=== PATIENT | male | born 1975 | race Caucasian/White ===

== ENCOUNTER 2017-11-23 20:24 | Inpatient (IN) | payer OTHER, MEDICARE ==
[~2017-11-23 20:24] MED LIST: MAGNESIUM HYDROXIDE SUSP 30 ML CUP PO PRN
[2017-11-23 20:25] VITALS: O2SAT 97
[2017-11-23] MEDS ORDERED: DIPHTH/TETANUS/ACEL PERTUSSIS (BOOSTER) 0.5 ML VIAL/PFS IM ONE (20:30)
[2017-11-23] MEDS ORDERED: IOHEXOL 350 MG/ML 10 ML VIAL (for RAD DIAG) IVCONTRAST ONE (20:46)
[2017-11-23 20:52] LABS: AUTOMATED NEUTROPHIL # 9.7 TH/MM3 (1.0-8.5); BASOPHIL % 0.3 % (0.0-2.0); EOSINOPHIL # 0.1 TH/MM3 (0-1.3); EOSINOPHIL % 0.4 % (0.0-15.0); HEMATOCRIT 38.3 % (34.0-42.0); HEMOGLOBIN 13.1 GM/DL (11.0-16.0); LYMPH % 19.6 % (23.0-77.0); LYMPHOCYTE # 2.5 TH/MM3 (4.0-13.5); MEAN CELL VOLUME 88.1 FL (85.0-126.0); MEAN CORPUSCULAR HEMOGLOBIN 30.1 PG (27.0-35.0); MEAN CORPUSCULAR HGB CONC 34.2 % (32.0-36.0); MEAN PLATELET VOLUME 8.2 FL (7.0-11.0); MONO % 4.3 % (0.0-14.0); MONOCYTE # 0.6 TH/MM3 (0-2.4); NEUT % 75.4 % (6.0-49.0); PLATELET COUNT 257 TH/MM3 (150-450); RED BLOOD COUNT 4.34 MIL/MM3 (3.50-4.30); RED CELL DISTRIBUTION WIDTH 12.8 % (11.6-17.2); WHITE BLOOD COUNT 12.9 TH/MM3 (6-17.5)
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
[2017-11-23 21:00] LABS: INTERNATIONAL NORMALIZED RATIO 1.1 RATIO
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
[2017-11-23] MEDS ORDERED: ONDANSETRON HCL 4 MG/2 ML VIAL IV PUSH PRN (21:15)
[2017-11-23] MEDS ORDERED: HYDROmorphone HCL PF 1 MG/ML VIAL IVP PRN ×2 (21:15)
[2017-11-23] MEDS ORDERED: LIDOCAINE HCL 1% 30 ML VIAL INFIL ONE (21:15)
[2017-11-23] MEDS: LACTATED RINGER'S 1000 ML INJ 1,000 ML IV SCH (21:15)
[2017-11-23] MEDS ORDERED: SODIUM CHLORIDE 0.9% FLUSH 10 ML FLUSH IV FLUSH PRN (21:15)
[2017-11-23] MEDS ORDERED: CHLORHEXIDINE GLUCONATE 2 % 1 PACK (2 CLOTHS) TOP PRN (21:15)
[2017-11-23] MEDS ORDERED: MISCELLANEOUS NURSING INFORMATION XX SCH (21:15)
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
[2017-11-23] MEDS ORDERED: HYDROmorphone HCL PF 2 MG/ML VIAL IV PRN (21:30)
[2017-11-23] MEDS: HYDROmorphone HCL PF 2 MG/ML VIAL IV PUSH PRN (21:58)
[2017-11-23] MEDS ORDERED: LORazepam 2 MG/ML VIAL IV PUSH ONE (22:00)
[2017-11-23] MEDS: BACITRACIN TOP OINT 15 GM TUBE TOP SCH (22:00)
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
--- NOTE | 2017-11-23 22:16 | PD ---
Physical Exam Date Seen by Provider: Nov 23, 2017 Time Seen by Provider: 22:15 Narrative For full history and physical examination please see previous provider's note. I was asked to repair laceration the patient's right foot. Data Data Last Documented VS Vital Signs Date Time Temp Pulse Resp B/P (MAP) Pulse Ox O2 Delivery O2 Flow Rate FiO2 11/23/17 20:25 97 2.00 Orders Orders Iuab-Ysl-Dqiora (Booster) Inj (Boostrix (11/23/17 20:30) Fentanyl Inj (Fentanyl Inj) (11/23/17 20:40) I-Stat Profile (11/23/17 20:34) Complete Blood Count With Diff (11/23/17 20:34) Prothrombin Time / Inr (Pt) (11/23/17 20:34) Act Partial Throm Time (Ptt) (11/23/17 20:34) Type And Screen (11/23/17 20:34) Chest, Single Ap (11/23/17 20:34) Pelvis, Ap Only (Routine) (11/23/17 20:34) Ct Brain W/O Iv Contrast(Rout) (11/23/17 20:34) Ct Cerv Spine W/O Contrast (11/23/17 20:34) Ct Abd/Pel W Iv Contrast(Rout) (11/23/17 20:34) Ct Thorax/ Chest W Iv Contrast (11/23/17 20:34) Iv Access Insert/Monitor (11/23/17 20:34) Ecg Monitoring (11/23/17 20:34) Oximetry (11/23/17 20:34) Oxygen Administration (11/23/17 20:34) Wrist, Limited (Ap&Lat) (11/23/17 ) Foot, Limited (2vws) (11/23/17 ) Elbow, One View (11/23/17 ) Iohexol 350 Inj (Omnipaque 350 Inj) (11/23/17 20:46) Lidocaine 1% Inj (Xylocaine 1% Inj) (11/23/17 21:15) Admit Order (Ed Use Only) (11/23/17 21:06) Labs Laboratory Tests Test 11/23/17 20:30 White Blood Count 12.9 TH/MM3 Red Blood Count 4.34 MIL/MM3 Hemoglobin 13.1 GM/DL Bedside Hemoglobin 12.2 G/DL Hematocrit 38.3 % Bedside Hematocrit 36.0 % Mean Corpuscular Volume 88.1 FL Mean Corpuscular Hemoglobin 30.1 PG Mean Corpuscular Hemoglobin Concent 34.2 % Red Cell Distribution Width 12.8 % Platelet Count 257 TH/MM3 Mean Platelet Volume 8.2 FL Neutrophils (%) (Auto) 75.4 % Lymphocytes (%) (Auto) 19.6 % Monocytes (%) (Auto) 4.3 % Eosinophils (%) (Auto) 0.4 % Basophils (%) (Auto) 0.3 % Neutrophils # (Auto) 9.7 TH/MM3 Lymphocytes # (Auto) 2.5 TH/MM3 Monocytes # (Auto) 0.6 TH/MM3 Eosinophils # (Auto) 0.1 TH/MM3 Basophils # (Auto) 0.0 TH/MM3 CBC Comment DIFF FINAL Differential Comment Prothrombin Time 11.0 SEC Prothromb Time International Ratio 1.1 RATIO Activated Partial Thromboplast Time 21.6 SEC Bedside Sodium 145 MMOL/L Bedside Potassium 4.4 MMOL/L Bedside Chloride 109 MMOL/L Bedside Blood Urea Nitrogen 13 MG/DL Bedside Creatinine 1.3 MG/DL Bedside Glucose 154 MG/DL [facility] Medical Record Reviewed: Yes Supervised Visit with WENDIE: Yes Procedures Procedure Narrative LACERATION LOCATION: Dorsal aspect of right LENGTH: 6 cm NUMBER OF STITCHES/BRETT: 12 stitches REPAIR: The area of the laceration was prepped with Betadine and sterilely draped. The laceration was infiltrated with 1% Xylocaine. The wound was copiously irrigated and explored without evidence of foreign body, tendon injury or neurovascular injury. The wound was closed using 3-0 Ethilon. This was a 1 layer repair. A sterile dressing was applied. The patient was advised to keep the dressing clean and dry. Patient tolerated the procedure well. Diagnosis Primary Impression: Spleen laceration Qualified Codes: S36.039A - Unspecified laceration of spleen, initial encounter Additional Impressions: Left rib fracture Qualified Codes: S22.42XA - Multiple fractures of ribs, left side, initial encounter for closed fracture Closed head injury Qualified Codes: S09.90XA - Unspecified injury of head, initial encounter Fracture of right ulna Qualified Codes: S52.001A - Unspecified fracture of upper end of right ulna, initial encounter for closed fracture Laceration of right foot Qualified Codes: S91.311A - Laceration without foreign body, right foot, initial encounter Marilyn Sommer Nov 23, 2017 22:16
[2017-11-23 22:35] VITALS: BP 70/39; PULSE 85; O2SAT 97
[2017-11-23 22:43] VITALS: BP 104/55; PULSE 87; O2SAT 97
[2017-11-23 22:44] VITALS: BP 104/55; PULSE 88; RESP 16; O2SAT 96
[2017-11-23] MEDS ORDERED: SODIUM CHLOR 0.9% 250 ML INJ 250 ML IV ONE (22:45)
[2017-11-23] MEDS ORDERED: TERBUTALINE INJ 1 MG/ML AMP SQ PRN (22:45)
[2017-11-23] MEDS ORDERED: PHENYLEPHRINE INJ 40 MG in DEXTROSE 5% IN WATE 500 ML INJ 496 ML IV PRN ×4 (22:45→23:00)
[2017-11-23 22:55] LABS: AUTOMATED NEUTROPHIL # 13.9 TH/MM3 (1.0-8.5); BASOPHIL # 0.1 TH/MM3 (0-0.4); BASOPHIL % 0.3 % (0.0-2.0); EOSINOPHIL % 0.1 % (0.0-15.0); HEMATOCRIT 36.5 % (34.0-42.0); HEMOGLOBIN 12.6 GM/DL (11.0-16.0); LYMPH % 8.5 % (23.0-77.0); LYMPHOCYTE # 1.4 TH/MM3 (4.0-13.5); MEAN CELL VOLUME 87.9 FL (85.0-126.0); MEAN CORPUSCULAR HEMOGLOBIN 30.4 PG (27.0-35.0); MEAN CORPUSCULAR HGB CONC 34.6 % (32.0-36.0); MEAN PLATELET VOLUME 8.2 FL (7.0-11.0); MONO % 7.2 % (0.0-14.0); MONOCYTE # 1.2 TH/MM3 (0-2.4); NEUT % 83.9 % (6.0-49.0); PLATELET COUNT 223 TH/MM3 (150-450); RED BLOOD COUNT 4.15 MIL/MM3 (3.50-4.30); RED CELL DISTRIBUTION WIDTH 12.6 % (11.6-17.2); WHITE BLOOD COUNT 16.5 TH/MM3 (6-17.5)
[2017-11-23 23:49] LABS: BANDS 4 % (0-6); LYMPHOCYTES 12 % (23-77); METAMYELOCYTES 2 % (0-1); MONOCYTES 4 % (0-14); NEUTROPHIL # MANUAL DIFF 13.7 TH/MM3 (1.0-8.5); POLYS (SEG NEUTROPHILS) 77 % (6-49)
[2017-11-24] VITALS (8 sets, daily range): BP systolic 120–148; BP diastolic 51–72; PULSE 69–101; RESP 8–16; TEMP 98.3–98.8; O2SAT 95–98
[2017-11-24] MEDS: HYDROmorphone HCL PF 2 MG/ML VIAL IV PUSH PRN ×3 (00:29→06:21)
[2017-11-24] MEDS: MULTIVITAMIN INJ 10 ML, THIAMINE INJ 100 MG, FOLIC ACID INJ 1 MG in SODIUM CHLORID 0.9%... IV SCH ×2 (02:08→23:38)
[2017-11-24 02:10] LABS: BILIRUBIN, URINE NEG (NEG); BLOOD, URINE LARGE (NEG); GLUCOSE,URINE NEG (NEG); KETONE, URINE NEG (NEG); NITRITE,URINE NEG (NEG); PH, URINE 6.5 (5.0-8.5); URINE COLOR LIGHT-YELLOW (YELLW/STRAW); URINE LEUKOCYTE ESTERASE NEG (NEG)
[2017-11-24] MEDS ORDERED: CHLORHEXIDINE GLUCONATE 2 % 1 PACK (2 CLOTHS) TOP SCH (04:00)
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
[2017-11-24 06:23] LABS: AUTOMATED NEUTROPHIL # 7.7 TH/MM3 (1.0-8.5); BASOPHIL % 0.1 % (0.0-2.0); EOSINOPHIL % 0.1 % (0.0-15.0); HEMATOCRIT 37.4 % (34.0-42.0); HEMOGLOBIN 12.9 GM/DL (11.0-16.0); LYMPH % 23.4 % (23.0-77.0); LYMPHOCYTE # 2.7 TH/MM3 (4.0-13.5); MEAN CELL VOLUME 88.5 FL (85.0-126.0); MEAN CORPUSCULAR HEMOGLOBIN 30.5 PG (27.0-35.0); MEAN CORPUSCULAR HGB CONC 34.5 % (32.0-36.0); MEAN PLATELET VOLUME 8.2 FL (7.0-11.0); MONO % 9.7 % (0.0-14.0); MONOCYTE # 1.1 TH/MM3 (0-2.4); NEUT % 66.7 % (6.0-49.0); PLATELET COUNT 177 TH/MM3 (150-450); RED BLOOD COUNT 4.23 MIL/MM3 (3.50-4.30); RED CELL DISTRIBUTION WIDTH 13.1 % (11.6-17.2); WHITE BLOOD COUNT 11.6 TH/MM3 (6-17.5)
[2017-11-24 06:51] LABS: INTERNATIONAL NORMALIZED RATIO 1.1 RATIO; PROTHROMBIN TIME - PATIENT 10.8 SEC (9.8-11.6)
[2017-11-24 06:54] LABS: BLOOD UREA NITROGEN 13 MG/DL (7-23); CALCIUM 7.8 MG/DL (8.6-10.7); CHLORIDE 111 MEQ/L (94-114); CREATININE 0.92 MG/DL (0.23-0.60); GLUCOSE,RANDOM 98 MG/DL (74-106); SODIUM (NA) 145 MEQ/L (130-146)
[2017-11-24] MEDS ORDERED: RESP: ALBUTEROL 2.5 MG/IPRATROPIUM 0.5 MG NEB (PRN) NEB (07:15)
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
[2017-11-24] MEDS: LACTATED RINGER'S 1000 ML INJ 1,000 ML IV SCH ×2 (07:45→13:15)
[2017-11-24] MEDS ORDERED: FAMOTIDINE 20 MG/2 ML VIAL IV PUSH SCH (08:00)
[2017-11-24 08:45] LABS: BANDS 2 % (0-6); LYMPHOCYTES 19 % (23-77); MONOCYTES 5 % (0-14); NEUTROPHIL # MANUAL DIFF 8.8 TH/MM3 (1.0-8.5); POLYS (SEG NEUTROPHILS) 74 % (6-49)
[2017-11-24] MEDS: BACITRACIN TOP OINT 15 GM TUBE TOP SCH ×2 (09:00→20:30)
[2017-11-24] MEDS: REMOVE OLD LIDOCAINE PATCH T-DERMAL SCH (09:00)
[2017-11-24] MEDS: DOCUSATE SODIUM 50 MG/SENNA 8.6 MG TAB PO SCH ×2 (09:00→20:29)
[2017-11-24] MEDS ORDERED: DOCUSATE SODIUM 100 MG CAP PO SCH (09:00)
[2017-11-24] MEDS: RESP: ALBUTEROL 2.5 MG/IPRATROPIUM 0.5 MG NEB (SCH) NEB ×4 (09:04→20:52)
--- NOTE | 2017-11-24 09:07 | RADRPT ---
EXAM DATE/TIME: 11/24/2017 08:08 [facility] COMPARISON: No previous studies available for comparison. INDICATIONS : Right elbow pain. MEDICAL HISTORY : Hypertension. Asthma. SURGICAL HISTORY : Cholecystectomy. ENCOUNTER: Subsequent ACUITY: 2 days PAIN SCORE: 5/10 LOCATION: Right upper extremity FINDINGS: Small joint effusion. Anatomic alignment. No fracture.. CONCLUSION: Small joint effusion otherwise negative Rommel Becerra MD FACR on November 24, 2017 at 9:05 Board Certified Radiologist. This report was verified electronically.
[2017-11-24] MEDS: ACETAMINOPHEN 1000 MG/100 ML 100 ML IV SCH ×3 (09:53→20:29)
[2017-11-24] MEDS: METHOCARBAMOL 500 MG TAB PO SCH ×3 (09:54→23:36)
[2017-11-24] MEDS: LIDOCAINE HCL 5% PATCH T-DERMAL SCH (09:57)
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
[2017-11-24] MEDS: clonazePAM 0.5 MG TAB PO SCH ×2 (12:45→20:29)
[2017-11-24] MEDS: GABAPENTIN 300 MG CAP PO SCH ×2 (12:45→17:02)
[2017-11-24] MEDS: PROPRANOLOL HCL 20 MG TAB PO SCH ×2 (12:46→20:29)
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
[2017-11-24] MEDS ORDERED: oxyCODONE/ACETAMINOPHEN 5 MG/325 MG TAB PO PRN (16:45)
[2017-11-24] MEDS ORDERED: MORPHINE SULFATE 4 MG/ML INJ IV PUSH PRN (16:45)
[2017-11-24] MEDS: oxyCODONE/ACETAMINOPHEN 10 MG/325 MG TAB PO PRN ×2 (17:26→21:53)
[2017-11-25] VITALS (9 sets, daily range): BP systolic 102–124; BP diastolic 48–70; PULSE 76–88; RESP 12–18; TEMP 97.6–99.5; O2SAT 92–100
[2017-11-25] MEDS: RESP: ALBUTEROL 2.5 MG/IPRATROPIUM 0.5 MG NEB (SCH) NEB ×7 (00:11→23:49)
[2017-11-25] MEDS: ACETAMINOPHEN 1000 MG/100 ML 100 ML IV SCH (01:35)
[2017-11-25] MEDS: oxyCODONE/ACETAMINOPHEN 10 MG/325 MG TAB PO PRN ×5 (01:53→22:14)
[2017-11-25] MEDS: clonazePAM 0.5 MG TAB PO SCH ×3 (05:18→20:13)
[2017-11-25] MEDS: PROPRANOLOL HCL 20 MG TAB PO SCH ×3 (05:18→22:00)
[2017-11-25 06:06] LABS: AUTOMATED NEUTROPHIL # 4.8 TH/MM3 (1.8-7.7); BASOPHIL % 0.5 % (0.0-2.0); EOSINOPHIL # 0.1 TH/MM3 (0-0.4); EOSINOPHIL % 1.5 % (0.0-4.0); HEMATOCRIT 30.1 % (39.0-51.0); HEMOGLOBIN 10.6 GM/DL (13.0-17.0); LYMPH % 28.3 % (9.0-44.0); LYMPHOCYTE # 2.3 TH/MM3 (1.0-4.8); MEAN CELL VOLUME 87.9 FL (80.0-100.0); MEAN CORPUSCULAR HGB CONC 35.3 % (32.0-36.0); MEAN PLATELET VOLUME 8.4 FL (7.0-11.0); MONO % 9.2 % (0.0-8.0); MONOCYTE # 0.7 TH/MM3 (0-0.9); NEUT % 60.5 % (16.0-70.0); PLATELET COUNT 128 TH/MM3 (150-450); RED BLOOD COUNT 3.43 MIL/MM3 (4.50-5.90); RED CELL DISTRIBUTION WIDTH 12.8 % (11.6-17.2)
[2017-11-25 06:07] LABS: BICARBONATE 27.8 MEQ/L (21.0-32.0); CALCIUM 8.6 MG/DL (8.5-10.1); CREATININE 0.86 MG/DL (0.60-1.30)
--- NOTE | 2017-11-25 08:27 | HHI.PR ---
Neuropsych Emotional Emotional: Intact: Emotional, Anxious/Fearful, Depressed/Sad, Hostile/Resentful , Irritable/Angry/Frustrate, Labile, Constricted/Blunted Behavior Behavior: Intact: Behavior, Coping/Acceptance, Cooperative w/ Treatment, Motivation, Frustration Tolerance/[place], Impulsive/Agitated, Suicidal/Homicidal Risk Cognitive Cognitive: Intact: Cognitive, Attention/Concentration, Confused/Orientation, Insight/Awareness, Judgement/Problem-Solving, Memory Psychosocial Psychosocial: Mild: Psychosocial, Family/Other Adjustment, Realistic Expectation, Unable to Asses: Self-Esteem/Confidence Progress Notes/Response to Tx Contents of Sessions: Adjustment, Level of Consciousness Time with Patient: 15 minutes Premorbid psychological status Premorbid Cognitive, Emotional and Behavioral Status: Deferred. The patient has high school years of education and a sporadic work history prior to this injury. The patient has no prior psychiatric difficulties, as described above. Substance abuse history is significant. Behavioral Reactions of Patient and Family/Support System: Tenuous. The patients family is experiencing ongoing issues of adjustment given the nature of the injury, and this aspect of recovery will require ongoing monitoring. Emotional/Behavioral Status of Patient and Family/Support System: Tenuous. Pertinent issues, if appropriate to this patients clinical care, are described in detail above. Maximizing acute care outcome It is recommended that the patient be monitored for emergent behavioral impulsivity as the medical condition evolves. This patients neuropathological challenges may limit his rehabilitation potential going forward, and these challenges will require specialized therapeutic skills to maximize outcome. Additionally, the patients family is experiencing ongoing issues of adjustment given the traumatic nature of the injury, and they [will need / may benefit] from ongoing psychological assistance. At this point in the recovery process, the patient does have cognitive capacity as the patient is able to understand a situation and its likely consequences, and he is able to manipulate information rationally. Cognitive capacity will be assessed throughout the recovery process. Anticipated Problems Ongoing areas of concern will include behavioral impulsivity, lack of insight and judgment, which is expected to improve with time and treatment. Presently , the patient is awake, alert and following commands. Treatment Plan This clinician will continue to follow with you throughout the course of this patients acute care treatment, and I will be available to meet with the patient s family/support system to facilitate their understanding and the ongoing care of their family member. The goals of neuropsychological intervention shall be both educational and supportive to the family/support system as is deemed clinically appropriate. Diagnosis: (1) Polysubstance dependence in controlled environment Progress Note Narrative PTD 2. The patient is stable, and transferred to the floor. His GCS is 15, and there is no neurobehavioral issues at present. However, this patient is at risk for withdrawal from substances. I will follow. Reid Su PhD Nov 25, 2017 8:27 am
[2017-11-25] MEDS: GABAPENTIN 300 MG CAP PO SCH ×3 (08:30→17:25)
[2017-11-25] MEDS: FLUoxetine HCL 20 MG CAP PO SCH (08:30)
[2017-11-25] MEDS: DOCUSATE SODIUM 50 MG/SENNA 8.6 MG TAB PO SCH ×2 (08:31→20:12)
[2017-11-25] MEDS: METHOCARBAMOL 500 MG TAB PO SCH ×3 (08:31→23:28)
[2017-11-25] MEDS: REMOVE OLD LIDOCAINE PATCH T-DERMAL SCH (08:34)
[2017-11-25] MEDS: LIDOCAINE HCL 5% PATCH T-DERMAL SCH (08:34)
[2017-11-25] MEDS: BACITRACIN TOP OINT 15 GM TUBE TOP SCH ×2 (08:35→20:11)
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
[2017-11-25] MEDS: MULTIVITAMIN INJ 10 ML, THIAMINE INJ 100 MG, FOLIC ACID INJ 1 MG in SODIUM CHLORID 0.9%... IV SCH (23:21)
[2017-11-26] VITALS: BP 128/75; PULSE 74; RESP 19; TEMP 100.2; O2SAT 94
[2017-11-26] MEDS: oxyCODONE/ACETAMINOPHEN 10 MG/325 MG TAB PO PRN ×4 (03:33→17:31)
[2017-11-26 04:00] VITALS: BP 148/77; PULSE 84; RESP 20; TEMP 100.9; O2SAT 95
[2017-11-26] MEDS: RESP: ALBUTEROL 2.5 MG/IPRATROPIUM 0.5 MG NEB (SCH) NEB ×4 (04:02→15:52)
[2017-11-26 05:27] LABS: HEMATOCRIT 33.7 % (39.0-51.0); HEMOGLOBIN 11.8 GM/DL (13.0-17.0)
[2017-11-26] MEDS: clonazePAM 0.5 MG TAB PO SCH ×2 (06:21→13:36)
[2017-11-26] MEDS: PROPRANOLOL HCL 20 MG TAB PO SCH ×2 (06:21→13:36)
[2017-11-26 08:00] VITALS: BP 156/85; PULSE 79; RESP 19; TEMP 98.3; O2SAT 93
[2017-11-26 08:12] VITALS: O2SAT 94
[2017-11-26] MEDS: DOCUSATE SODIUM 50 MG/SENNA 8.6 MG TAB PO SCH (08:15)
[2017-11-26] MEDS: LIDOCAINE HCL 5% PATCH T-DERMAL SCH (08:15)
[2017-11-26] MEDS: GABAPENTIN 300 MG CAP PO SCH ×3 (08:15→17:31)
[2017-11-26] MEDS: FLUoxetine HCL 20 MG CAP PO SCH (08:15)
[2017-11-26] MEDS: METHOCARBAMOL 500 MG TAB PO SCH ×2 (08:15→14:59)
[2017-11-26] MEDS: REMOVE OLD LIDOCAINE PATCH T-DERMAL SCH (08:16)
[2017-11-26] MEDS: BACITRACIN TOP OINT 15 GM TUBE TOP SCH (08:16)
[2017-11-26] MEDS ORDERED: LACTULOSE SYRUP 20 GM/30 ML CUP PO SCH (09:00)
[2017-11-26] MEDS ORDERED: MAGNESIUM HYDROXIDE SUSP 30 ML CUP PO SCH (09:00)
[2017-11-26] MEDS ORDERED: METH500T3 PO (09:59)
[2017-11-26] MEDS ORDERED: MAGN30S PO (09:59)
[2017-11-26] MEDS ORDERED: PERI PO (09:59)
[2017-11-26] MEDS ORDERED: OXYC1TAB63 PO (09:59)
[2017-11-26] MEDS ORDERED: WHEEMIS3 (11:19)
[2017-11-26] MEDS ORDERED: WALKER/FOLDING1 MIS (11:19)
[2017-11-26] MEDS ORDERED: BEDSIDE COMMODE1 MI1 (11:19)
--- NOTE | 2017-11-26 11:23 | HHI.FF ---
Face to Face Verification Diagnosis: (1) Polysubstance dependence in controlled environment (2) Fracture of right ulna (3) Closed head injury (4) Chest wall contusion (5) Laceration of right foot (6) Spleen laceration (7) Left rib fracture Physical Therapy Order: Evaluate and Treat, Improve ambulation, Strength and gait training Home Health Nursing Order: Medical education Signs/symptoms of disease process Medication education-adverse effect Wound care and dressing changes (daily dressing changes to right heel per orthopedics) Nursing assessment with vital signs I have seen patient Ottoniel Oquendo on 11/26/17. My clinical findings support the need for the requested home health care services because: Ltd mobility - disease progression Deconditioned w/ increased weakness Limited ability to care for self High risk of falls Infection w/ risk of complications I certify that my clinical findings support that this patient is homebound because: Post-op weakness Unsteady gait/balance Unsafe to leave home unassisted [id number] bed/chair Unable to use public transportation Remarks seen and examined with SCALE MANAGER overall stable pain controlled ambulate d/c Violeta Hanson Nov 26, 2017 11:23 Jyothi Quiñones MD Nov 26, 2017 18:55
[2017-11-26 12:00] VITALS: BP 146/78; PULSE 79; RESP 12; TEMP 98.6; O2SAT 93
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
== END 2017-11-26 19:01 | DRG 964 ==
LOC: NEPI 20:24 → EDBD 21:08 → NEDA 21:08 → N03A 22:53 → N03B 11-24 16:40
PROVIDERS: ADMIT Surgery; ATTEND Surgery
PROC: 0HQMXZZ Repair Right Foot Skin, External Approach (ICD-10-PCS; principal; 2017-11-23)
DX: S36.039A Unspecified laceration of spleen, initial encounter (principal); S22.42XA Multiple fractures of ribs, left side, initial encounter for closed fracture; S37.012A Minor contusion of left kidney, initial encounter; S52.041A Displaced fracture of coronoid process of right ulna, initial encounter for closed fracture; S92.331A Displaced fracture of third metatarsal bone, right foot, initial encounter for closed fracture; S91.311A Laceration without foreign body, right foot, initial encounter; V47.6XXA Car passenger injured in collision with fixed or stationary object in traffic accident, initial encounter; D68.8 Other specified coagulation defects; F14.90 Cocaine use, unspecified, uncomplicated; I10 Essential (primary) hypertension; F17.210 Nicotine dependence, cigarettes, uncomplicated; R33.9 Retention of urine, unspecified; R73.9 Hyperglycemia, unspecified; Z88.0 Allergy status to penicillin
CPT/HCPCS: 12002; 36600; 70450; 71045; 71260; 72125; 72170; 73070; 73100; 73620; 74177; 80048; 81001; 82805; 83605; 85007; 85014; 85018; 85025; 85027; 85384; 85610; 85730; 86850; 86900; 86901; 86920; 87086; 87641; 90471; 90715; 94150; 94640; 94664; 94667; 94668; 96374; 96375; 99291; G0390; J0131; J1170; J2060; J3010; J3411; J7040; J7120; L3260; Q9967